=== PATIENT | male | born 1960 ===

== ENCOUNTER 2022-01-02 08:00 | Day surgery (SDC) | payer OTHER ==
[~2022-01-02] VITALS: Ht 172.7 cm; Wt 97.5 kg
[~2022-01-02 08:00] MED LIST: ALLOPURINOL100 MG PO; COZAAR100 MG PO; HYDRALAZINE HCL50 MG PO
[2022-01-02] MEDS ORDERED: MONTELUKAST SOD10 MG (14:45)
[2022-01-02] MEDS ORDERED: AMLODIPINE BESY10 MG (14:45)
[2022-01-02] MEDS ORDERED: ATORVASTATIN CA20 MG (14:45)
[2022-01-02] MEDS ORDERED: FOLIC ACID1 MG (14:45)
[2022-01-02] MEDS ORDERED: LEVOCETIRIZINE D5 MG (14:45)
[2022-01-02] MEDS ORDERED: FERROUS SULFAT325 MG (14:45)
[2022-01-02] MEDS ORDERED: LOSARTAN-HCTZ1 EACH (14:45)
[2022-01-02] MEDS ORDERED: EZETIMIBE10 MG (14:45)
[2022-01-02] MEDS ORDERED: MAXIMUM D3325 MCG (14:46)
[2022-01-02] MEDS ORDERED: PROTONIX40 MG PO (15:22)
[2022-01-02] MEDS ORDERED: ULTRACET PO (15:22)
== END 2022-01-02 10:00 | disposition home or self-care (01) ==
LOC: CIR.AMB 08:00 → SURH 11:45 → EDSTATUS 11:45 → O/R 18:00 → SURH 21:00
PROVIDERS: ATTEND Surgery
DX: R59.1 Generalized enlarged lymph nodes (principal); Z20.822 Contact with and (suspected) exposure to COVID-19; D50.9 Iron deficiency anemia, unspecified; R19.4 Change in bowel habit